=== PATIENT | male | born 1975 | race Caucasian/White ===

== ENCOUNTER 2018-02-10 09:45 | Emergency (ER) | payer SELFPAY ==
[~2018-02-10] VITALS: Ht 182.9 cm; Wt 123.8 kg
[~2018-02-10 09:45] MED LIST: Prinivil10 MG PO
[2018-02-10] MEDS ORDERED: Norco 5-325 Ta1 EACH PO (11:51)
== END 2018-02-10 11:57 | disposition home or self-care (01) ==
LOC: ER 09:45
DX: S99.912A Unspecified injury of left ankle, initial encounter (principal); Z79.899 Other long term (current) drug therapy; Z87.891 Personal history of nicotine dependence
CPT/HCPCS: 73610

== ENCOUNTER 2019-11-05 10:26 | Observation (INO) | payer OTHER ==
[~2019-11-05] VITALS: Ht 182.9 cm; Wt 106.6 kg
[~2019-11-05 10:26] MED LIST changes: +Norco 5-325 Ta1 EACH PO
[2019-11-05] MEDS ORDERED: LOSARTAN-HCTZ1 EAC3 PO (10:39)
[2019-11-05] MEDS ORDERED: BUPROPION XL150 M1 PO (10:40)
[2019-11-05 11:07] LABS: BASOPHILS ABSOLUTE AUTO 0.03 K/mm3 (0.00-0.23); BASOPHILS PERCENT AUTO 1 % (0-2); EOSINOPHILS ABSOLUTE AUTO 0.15 K/mm3 (0.00-0.68); EOSINOPHILS PERCENT AUTO 2 % (0-6); Hematocrit 47.1 % (37.0-53.0); Hemoglobin 16.3 g/dL (13.5-17.5); IMMATURE GRAN ABSOLUTE AUTO 0.02 K/mm3 (0.00-0.10); IMMATURE GRAN PERCENT AUTO 0 % (0-1); LYMPHOCYTES ABSOLUTE AUTO 1.84 K/mm3 (0.84-5.20); LYMPHOCYTES PERCENT AUTO 29 % (21-46); MONOCYTES ABSOLUTE AUTO 0.47 K/mm3 (0.16-1.47); MONOCYTES PERCENT AUTO 7 % (4-13); Mean Corpuscular HGB 29.8 pg (26.0-34.0); Mean Corpuscular HGB Conc 34.6 g/dL (31.5-36.5); Mean Corpuscular Volume 86 fL (80-100); Mean Platelet Volume 8.9 fL (9.1-12.4); NEUTROPHILS PERCENT AUTO 61 % (41-73); Platelet Count 291 K/mm3 (150-400); RDW Coefficient Variation 12.2 % (11.7-14.2); RDW Standard Deviation 38.5 fL (35.1-46.3); Red Blood Cell Count 5.47 M/mm3 (4.30-5.90); White Blood Cell Count 6.41 K/mm3 (4.00-11.30)
[2019-11-05 11:31] LABS: Alanine Aminotransfer (ALT/SGP 34 U/L (12-78); Anion Gap 7 mmol/L (6-16); Aspartate Aminotrans (AST/SGOT 22 U/L (12-37); Bilirubin, Total 0.6 mg/dL (0.1-1.0); Blood Urea Nitrogen 14 mg/dL (8-24); Bun/Creatinine Ratio 14.1 (12.0-20.0); CO2, Blood 26 mmol/L (21-32); Calcium, Blood 9.1 mg/dL (8.5-10.1); Chloride, Blood 106 mmol/L (98-108); Creatinine, Blood 0.99 mg/dL (0.60-1.20); Glomerular Filtration Rate >60 (60-); Glucose, Blood 107 mg/dL (70-99); Potassium, Blood 3.6 mmol/L (3.5-5.5); Sodium, Blood 139 mmol/L (136-145)
[2019-11-05 11:35] LABS: Albumin/Globulin Ratio 1.1 (0.8-1.8); Alk Phos 53 U/L (50-136); Globulin, Blood 3.6 g/dL (2.2-4.0); Total Protein, Blood 7.6 g/dL (6.4-8.2); Troponin I <0.015 ng/mL (0.000-0.040)
--- NOTE | 2019-11-05 19:30 | NUR ---
SHIFT SUMMARY- PT ADMITTED THROUGH THE ED. PT HAS A FAMILY Hx OF A FATHER WHO HAD A FATAL TN IN HIS 40'S AND A GRANDFATHER IN HIS 60'S. PT HAS HAD TROPONINS DRAWN THAT WERE NEGATIVE. PT ON TELECARDIAC STRESS TEST ORDERED FOR TOMORROW NPO AT MIDNIGHT EXCEPT FOR WATER MEDS AND ICE CHIPS. PT IS AWARE. PT STATED AT SHIFT CHANGE HE HAS HAD SHORT BOUTS OF CHEST PAIN BUT NOTHING SUSTAINING SO HE DIDNT NOTIFY STAFF. PT ALERT AND ORIENTED MOVES INDEPENDENTLY IN THE HALLS AND ROOM. DENIES SOB. PT HAS CPAP ORDERED, SPOKE TO RT MYLES HE IS AWARE. PT SPOUSE WENT HOME TO GET THE PT HOME CPAP MACHINE. RT TO SET UP AND ARRANGE CONT BIOX. PT EXPRESSED CONCERN ABOUT STAYING FOR A TWO DAY STRESS TEST. A ONE DAY STRESS TEST WAS ORDERED, PER REPORT FROM THE ED RN, SHE SPOKE TO LAITH MCDERMOTT AND PT WILL HAVE TO HAVE A TWO DAY TEST (PER REPORT). PT SPOUSE WAS ASKING IF THE FIRST HALF COULD BE DONE HERE AND THE SECOND HALF OUT PT. WITH PT FREQUENT AND INCREASING CHEST PAIN BEING IN THE HOSPITAL IS A BETTER SENARIO FOR THIS PT WITH HIS FAMILY Hx. PT SPOUSE AND PT AGREED AT THAT POINT THAT HE SHOULD STAY FOR THE WHOLE TEST.
--- NOTE | 2019-11-06 04:21 | NUR ---
SHIFT SUMMARY ADMITTED FOR CHEST PAIN. FULL CODE. PT STATES PAIN IS INTERMITTENT AND UNCHANGED SINCE ADMIT. TELEMETRY:NSR @ 65 BPM. CARDIAC DIET, RA, A&O X4, CPAP @ PM, INDEPENDENT IN ROOM. PT HAS BEEN NPO SINCE MIDNIGHT (EXCEPT MEDS AND WATER) IN PREPARATION FOR A STRESS TEST TOMORROW. HX: BERT, HYPERLIPIDEMIA, HTN.
--- NOTE | 2019-11-06 11:58 | NUR ---
Echocardiogram completed.
[2019-11-06] MEDS ORDERED: ACET325 PO (14:00)
[2019-11-06] MEDS ORDERED: ASPI81CH PO (14:00)
[2019-11-06] MEDS ORDERED: ATOR20 PO (14:01)
--- NOTE | 2019-11-06 15:52 | NUR ---
PT DISCHARGED 1400 WITH DISCHARGE INSTRUCTIONS AND NEW RX FAXED TO PHARM. PT TO HAVE STRESS TEST TOMORROW 1430, AWARE OF THE APT AND WILL FOLLOWUP. PT REFUSED WHEELCHAIR OUT OF HOSP AND AMBULATED WITH OUTSIDE TO CAR. IV DC'D.
== END 2019-11-06 14:16 | disposition home or self-care (01) ==
LOC: ER 10:26 → MEDS 16:01
PROVIDERS: Emergency Medicine; ADMIT Internal Medicine
DX: R07.9 Chest pain, unspecified (principal); I10 Essential (primary) hypertension; E78.5 Hyperlipidemia, unspecified; G47.33 Obstructive sleep apnea (adult) (pediatric); Z79.899 Other long term (current) drug therapy
CPT/HCPCS: 36415; 71046; 80053; 84484; 85025; 93005; 93010; 93306; 99285-25; A9270-GY; G0378

== ENCOUNTER → 2019-12-24 | Outpatient (CLI) | payer OTHER ==
[~2019-12-24] MED LIST changes: +ACET325 PO; +ASPI81CH PO; +ATOR20 PO; +BUPROPION XL150 M1 PO; +LOSARTAN-HCTZ1 EAC3 PO
== END | disposition home or self-care (01) ==
LOC: LAB SHORT 10:49 → PLD 10:49
DX: D23.71 Other benign neoplasm of skin of right lower limb, including hip (principal)
CPT/HCPCS: 88305